=== PATIENT | female | born 1985 | race African-American/Black ===

== ENCOUNTER 2019-06-16 10:02 | Outpatient (CLI) | payer OTHER ==
[~2019-06-16] VITALS: Ht 160 cm; Wt 62.7 kg
[2019-06-16] VITALS (8 sets, daily range): BP systolic 112–139; BP diastolic 66–85; PULSE 58–93
[~2019-06-16 10:02] MED LIST: CHANTIX 0.5MG0.5 MG PO; DESYREL 50MG50 MG PO
--- NOTE | 2019-06-16 11:02 | NUR ---
Transferred to [facility] by cart. Report from Diane MICHELLE. Lab to draw red top.
--- NOTE | 2019-06-16 11:02 | NUR ---
Bandaid to middle back CD&I and pt denies pain at this time
[2019-06-16 11:29] LABS: GLUCOSE,CSF 56 mg/dL (40-70)
[2019-06-16 11:32] LABS: TOTAL PROTEIN,CSF 10 mg/dL (15-45)
[2019-06-16 12:13] LABS: CSF APPEARANCE CLEAR; CSF COLOR COLORLESS
[2019-06-16 12:14] LABS: CSF MONONUCLEAR 100 % (70-100); CSF POLYMORPHONUCLEAR 0 % (0-6); CSF RBC 0 /mm3 (0-0)
--- NOTE | 2019-06-16 12:15 | NUR ---
Discharge instructions given. Transferred to private car by sharri
[2019-06-19 11:39] LABS: IGG/ALBUMIN SERUM 0.25 (<=0.40)
[2019-06-19 12:00] LABS: ALBUMIN CSF 6.8 mg/dL (<=27.0); CSF IGG/ALBUMIN 0.12 (<=0.21); CSF,IGG 0.8 mg/dL (<=8.1); CSF-IGG INDEX 0.48 (<=0.85)
== END 2019-06-16 12:15 | disposition home or self-care (01) ==
LOC: COL.RAD 10:02
PROVIDERS: Psychiatry & Neurology Neurology
DX: G93.2 Benign intracranial hypertension (principal)

== ENCOUNTER 2019-06-23 11:35 | Emergency (ER) | payer OTHER ==
[~2019-06-23] VITALS: Ht 160 cm; Wt 63.6 kg
[2019-06-23 11:38] VITALS: TEMP 98.2
[2019-06-23 14:18] VITALS: BP 107/62; PULSE 68
== END 2019-06-23 14:26 | disposition home or self-care (01) ==
LOC: COL.ER 11:35
DX: G97.1 Other reaction to spinal and lumbar puncture (principal)
CPT/HCPCS: J7120

== ENCOUNTER 2019-11-16 08:52 | Outpatient (CLI) | payer OTHER ==
--- NOTE | 2019-11-11 09:48 | NUR ---
LMOM WITH DATE, TIME AND INSTRUCTIONS
[~2019-11-16] VITALS: Ht 160 cm; Wt 60.5 kg
[~2019-11-16 08:52] MED LIST changes: +INDERAL 10MG10 MG PO; +MAG-OX 400400 MG/TAB PO; +NATURE'S BLEND100 M1 PO; +SONATA5 MG PO
[2019-11-16 09:40] VITALS: BP 145/95; PULSE 70
[2019-11-16 10:20] VITALS: BP 145/93; PULSE 62
[2019-11-16 10:30] VITALS: BP 140/94; PULSE 60
[2019-11-16 10:44] LABS: GLUCOSE,CSF 59 mg/dL (40-70); TOTAL PROTEIN,CSF 10 mg/dL (15-45)
[2019-11-16 10:45] VITALS: BP 141/97; PULSE 63
[2019-11-16 10:55] LABS: CSF APPEARANCE CLEAR; CSF COLOR COLORLESS
[2019-11-16 10:56] LABS: CSF MONONUCLEAR 0 % (70-100); CSF POLYMORPHONUCLEAR 0 % (0-6); CSF RBC < 1 /mm3 (0-0)
[2019-11-16 11:00] VITALS: BP 147/99; PULSE 60
[2019-11-16 11:15] VITALS: BP 139/87; PULSE 53
[2019-11-22 20:33] LABS: IGG/ALBUMIN SERUM 0.25 (<=0.40)
[2019-11-22 20:59] LABS: CSF IGG/ALBUMIN 0.12 (<=0.21); CSF,IGG 0.7 mg/dL (<=8.1); CSF-IGG INDEX 0.48 (<=0.85)
== END 2019-11-19 09:13 | disposition home or self-care (01) ==
LOC: COL.RAD 08:52
PROVIDERS: Psychiatry & Neurology Neurology
DX: G93.2 Benign intracranial hypertension (principal)